=== PATIENT | female | born 1950 | race Caucasian/White ===

== ENCOUNTER 2025-09-21 16:12 | Inpatient (IN) | payer OTHER ==
[~2025-09-21] VITALS: Ht 165.1 cm; Wt 68.0 kg
--- NOTE | 2025-09-21 16:34 | NUR ---
SE RECIBE PACIENTE EN AMBULANCIA ALERTA Y ORIENTADA EN ITALO VINCENT ESFERAS, REFIERE VENIR DE CRUCERO POR DOLOR ABDOMINAL EN EL RLQ QUE COMENZO EL SABADO; MIEGA NAUSEAS, VOMITOS O DIARREAS. INDICA QUE EN ADICION PRESENTA EDEMA EN EXREMIDADES INFERIORES.
[2025-09-21] MEDS ORDERED: FAMOtidine 10 MG/ML (4ML VIAL) IV ONE (16:45)
[2025-09-21] MEDS ORDERED: ONDANSETRON HCL 2 MG/ML VIAL IV ONE (16:45)
[2025-09-21] MEDS ORDERED: MORPHINE SULFATE 4 MG/ML CARTRIDGE IV ONE (16:45)
[2025-09-21] MEDS ORDERED: 0.9 % SODIUM CHLORIDE 1,000 ML IV ONE (16:45)
[2025-09-21 17:44] LABS: BASO % 0.4 % (0.1-1.2); EOS # 0.02 (0.04-0.54); EOS % 0.1 % (0.7-7.0); LYMPH # 1.21 (1.18-3.74); LYMPH % 7.6 % (19.3-53.1); MEAN PLATELET VOLUME 11.50 fl (9.4-12.4); MONO # 1.35 (0.24-0.82); MONO % 8.4 % (4.7-12.5); NEUT # 13.31 (1.56-6.13); NEUT % 83.1 % (34.0-71.1); RED CELL DISTRIBUTION WIDTH 13.2 % (11.6-14.4)
[2025-09-21 18:07] LABS: INR 0.98
[2025-09-21 18:14] LABS: ALT/SGPT 27.0 U/L (12-78); AST/SGOT 13.0 U/L (15-37); BILIRUBIN TOTAL 0.59 mg/dL (0.3-1.2); BUN CREA RATIO 20.0 (7.0-25.0); CREATININE SERUM 0.83 mg/dL (0.55-1.02); GFR 67.38; GLOBULINA 4.4 G/DL (2.4-3.5); GLUCOSE FASTING 112.0 mg/dL (65-100); OSMOLALITY SERUM 278.0 MOSM/KG (275-295)
[2025-09-21] MEDS ORDERED: PIPERACILLIN/TAZOBACTAM SODIUM 3.375 GM VIAL IV ONE ×2 (19:45→20:21)
[2025-09-21 20:19] LABS: URINE APPEARANCE Clear; URINE BILIRRUBIN Negative (NEGATIVE); URINE BLOOD Moderate; URINE COLOR Yellow; URINE GLUCOSE Negative (NEGATIVE); URINE KETONE 15 (NEGATIVE); URINE LEUKOCYTE Trace; URINE NITRATE Negative; URINE PROTEIN 30 (NEGATIVE); URINE UROBILINOGEN 0.2 E.U./dl
[2025-09-21 20:22] LABS: URINE BACTERIA 105.6 uL (0.0-1933); URINE EPITHELIAL CELLS 7.9 uL (0.0-38.8); URINE RBC 41.2 uL (0.0-20.8); URINE WBC 12.4 uL (0.0-23.2)
[2025-09-21 20:28] LABS: URINE CAST 0.14 uL (0.0-1.40)
[2025-09-21] MEDS ORDERED: LEVALBUTEROL HCL 1.25 MG/3 ML SOLUTION IH SCH (21:18)
[2025-09-22] MEDS ORDERED: PIPERACILLIN/TAZOBACTAM SODIUM 3.375 GM in DEXTROSE 5 % IN WATER 100 ML IV SCH
[2025-09-22] MEDS ORDERED: LEVALBUTEROL HCL 1.25 MG/3 ML SOLUTION IH ONE ×2 (00:19→09:10)
[2025-09-22] MEDS ORDERED: PIPERACILLIN/TAZOBACTAM SODIUM 3.375 GM VIAL IV ONE ×2 (06:21→08:02)
[2025-09-22] MEDS ORDERED: levoFLOXacin IN DEXTROSE 5 % 150 ML IV SCH (11:36)
[2025-09-22] MEDS ORDERED: ENOXAPARIN SODIUM 60 MG/0.6 ML SYRINGE SUBCUTANEO SCH (11:37)
[2025-09-22] MEDS ORDERED: FAMOTIDINE/PF 20 MG in 0.9 % SODIUM CHLORIDE 8 ML IV PUSH SCH (11:37)
[2025-09-22] MEDS ORDERED: ACETAMINOPHEN 500 MG GEL..CAP PO PRN (11:45)
[2025-09-22 11:58] VITALS: BP 140/90
[2025-09-22] MEDS ORDERED: levoFLOXacin IN DEXTROSE 5 % 500MG/100ML PIGGYBAG IV ONE (12:15)
[2025-09-22] MEDS ORDERED: FAMOTIDINE/PF 20 MG/2 ML VIAL ONE (12:15)
[2025-09-22] MEDS ORDERED: ENOXAPARIN SODIUM 60 MG/0.6 ML SYRINGE SUBCUTANEO ONE (12:15)
[2025-09-22] MEDS ORDERED: ENALAPRILAT DIHYDRATE 1.25 MG/ML VIAL IV PRN (14:30)
[2025-09-22 16:33] VITALS: BP 125/76; O2SAT 95
[2025-09-22] MEDS ORDERED: ENOXAPARIN SODIUM 80 MG/0.8 ML SYRINGE SUBCUTANEO SCH (21:00)
[2025-09-23] VITALS (12 sets, daily range): BP systolic 98–148; BP diastolic 57–80; O2SAT 92–100
[2025-09-24 07:34] VITALS: BP 114/63; O2SAT 97
[2025-09-24] MEDS ORDERED: APIXABAN 5 MG TABLET PO SCH (09:00)
[2025-09-24 12:15] VITALS: BP 143/91
[2025-09-24 13:05] VITALS: O2SAT 100
[2025-09-24 17:00] VITALS: BP 130/84; O2SAT 95
[2025-09-24 18:08] VITALS: O2SAT 99
[2025-09-24 21:43] VITALS: O2SAT 97
[2025-09-25 01:07] VITALS: O2SAT 96
[2025-09-25 01:56] VITALS: BP 135/78; O2SAT 96
[2025-09-25 05:42] VITALS: O2SAT 96
[2025-09-25 09:29] VITALS: O2SAT 96
[2025-09-25 09:37] VITALS: BP 134/81; O2SAT 97
== END 2025-09-25 13:49 | disposition home or self-care (01) | DRG 300 ==
LOC: ER 16:12 → ICU-2 09-22 12:41 → SEC-K 09-22 12:41 → MEDI 09-22 15:35 → ICU-2 09-22 15:41 → MEDI 09-24 08:45
PROVIDERS: General Practice; ADMIT Student in an Organized Health Care Education/Training Program; ATTEND Student in an Organized Health Care Education/Training Program
PROC: 3E0F7GC Introduction of Other Therapeutic Substance into Respiratory Tract, Via Natural or Artificial Opening (ICD-10-PCS; principal; 2025-09-21)
PROC: 4A12X4Z Monitoring of Cardiac Electrical Activity, External Approach (ICD-10-PCS; 2025-09-22)
PROC: BW24YZZ Computerized Tomography (CT Scan) of Chest and Abdomen using Other Contrast (ICD-10-PCS; 2025-09-22)
PROC: B24BZZZ Ultrasonography of Heart with Aorta (ICD-10-PCS; 2025-09-22)
PROC: B54DZZZ Ultrasonography of Bilateral Lower Extremity Veins (ICD-10-PCS; 2025-09-22)
DX: I82.431 Acute embolism and thrombosis of right popliteal vein (principal); J90 Pleural effusion, not elsewhere classified; R09.02 Hypoxemia